=== PATIENT | female | born 1960 | race Caucasian/White ===

== ENCOUNTER 2023-01-10 07:52 | Outpatient (CLI) | payer OTHER, SELFPAY | END 2023-01-10 07:53 | disposition home or self-care (01) | LOC: NFLDREF 14:43 | PROVIDERS: PCP Family Medicine; Referring Provider Family Medicine; Visit Provider Family Medicine | DX: Z00.00 Encounter for general adult medical examination without abnormal findings (principal); E03.9 Hypothyroidism, unspecified; R53.83 Other fatigue; Z13.6 Encounter for screening for cardiovascular disorders | CPT/HCPCS: 80053; 80061; 84443 ==

== ENCOUNTER 2023-01-13 14:16 | Outpatient (CLI) | payer OTHER, SELFPAY | END 2023-01-13 14:17 | disposition home or self-care (01) | LOC: NFLDREF 01-26 09:10 | PROVIDERS: PCP Family Medicine; Referring Provider Family Medicine; Visit Provider Family Medicine | DX: Z00.00 Encounter for general adult medical examination without abnormal findings (principal); E03.9 Hypothyroidism, unspecified; Z80.0 Family history of malignant neoplasm of digestive organs; Z11.3 Encounter for screening for infections with a predominantly sexual mode of transmission | CPT/HCPCS: 87624; 88174 ==

== ENCOUNTER 2023-01-25 06:58 | Outpatient (CLI) | payer OTHER, SELFPAY ==
--- NOTE | 2023-01-25 08:14 | W.ANESCHARGE ---
Anesthesia Charges Start Date/Time Anesthesia Start Date: 01/25/23 Anesthesia Start Time: 07:45 Stop Date/Time Anesthesia Stop Date: 01/25/23 Anesthesia Stop Time: 08:10
== END 2023-01-25 06:59 | disposition home or self-care (01) ==
LOC: OP CLINIC 06:59
PROVIDERS: PCP Family Medicine; Visit Provider Internal Medicine
DX: Z12.11 Encounter for screening for malignant neoplasm of colon (principal); K63.5 Polyp of colon
CPT/HCPCS: 00812; 45380; 88305; J2704

== ENCOUNTER 2024-06-21 09:55 | Outpatient (CLI) | payer OTHER, SELFPAY | END 2024-06-21 09:56 | disposition home or self-care (01) | PROVIDERS: PCP Family Medicine; Visit Provider Family Medicine | DX: G25.81 Restless legs syndrome (principal); Z13.228 Encounter for screening for other metabolic disorders; Z13.220 Encounter for screening for lipoid disorders; Z13.21 Encounter for screening for nutritional disorder | CPT/HCPCS: 80053; 80061; 82306; 82728 ==